=== PATIENT | female | born 1990 | race Caucasian/White ===

== ENCOUNTER 2020-10-16 01:20 | Emergency (ER) | payer SELFPAY ==
[~2020-10-16] VITALS: Ht 170.2 cm; Wt 102.3 kg
[2020-10-16] MEDS ORDERED: IBUPROFEN 200 MG TABLET. PO ONE (02:30)
[2020-10-16] MEDS ORDERED: ACETAMINOPHEN 500 MG TABLET PO ONE (02:30)
[2020-10-16] MEDS ORDERED: AMOX500C PO (03:04)
--- NOTE | 2020-10-16 03:06 | PHYS DOC ---
Past Medical History Additional Past Medical Histor: POLYCYSTIC OVARIAN SYNDROME Past Surgical History: No Surgical History Smoking Status: Current Every Day Smoker Alcohol Use: Rarely General Adult EDM: Chief Complaint: SORE THROAT HPI: HPI: Patient is a 30 year old female who presents with sore throat x3 days. States she has severe pain with swallowing. No fevers or chills. No sick contacts. No cough. Has never had similar symptoms before. Does have some swollen lymph nodes on the left side. No pain with moving the neck. She does have a sense of fullness in her left ear. Review of Systems: Review of Systems: Constitutional: Denies fever or chills. [] Eyes: Denies change in visual acuity. [] HENT: + Sore throat. denies nasal congestion [] Respiratory: Denies cough or shortness of breath. [] Cardiovascular: Denies chest pain or edema. [] GI: Denies abdominal pain, nausea, vomiting, bloody stools or diarrhea. [] : Denies dysuria. [] Musculoskeletal: Denies back pain or joint pain. [] Integument: Denies rash. [] Neurologic: Denies headache, focal weakness or sensory changes. [] Endocrine: Denies polyuria or polydipsia. [] Lymphatic: Denies swollen glands. [] Psychiatric: Denies depression or anxiety. [] Heart Score: C/O Chest Pain: N/A Risk Factors: Risk Factors: DM, Current or recent (<one month) smoker, HTN, HLP, family history of CAD, obesity. Risk Scores: Score 0 - 3: 2.5% MACE over next 6 weeks - Discharge Home Score 4 - 6: 20.3% MACE over next 6 weeks - Admit for Clinical Observation Score 7 - 10: 72.7% MACE over next 6 weeks - Early Invasive Strategies Family History: Family History: No pertinent family history Current Medications: Current Medications Medications (Trade) Dose Ordered Sig/Clarice Start Time Stop Time Status Last Admin Dose Admin Acetaminophen (Tylenol) 1,000 mg 1X ONCE 10/16/20 02:30 10/16/20 02:31 DC 10/16/20 02:26 1,000 MG Ibuprofen (Motrin) 600 mg 1X ONCE 10/16/20 02:30 10/16/20 02:31 DC 10/16/20 02:25 600 MG Allergies: Allergies: Allergies Coded Allergies Type Severity Reaction Last Updated Verified No Known Drug Allergies 10/16/20 No Physical Exam: PE: Constitutional: Well developed, well nourished, no acute distress, non-toxic appearance. [] HENT: Bilaterally swollen and erythematous tonsils. Mild exudates. Uvula is midline. No peritonsillar fullness. No pain with range of motion of the neck. Submental space is soft. No trismus. No stridor.. [] Eyes: PERRLA, EOMI, conjunctiva normal, no discharge. [] Neck: Normal range of motion, no tenderness, supple, no stridor. [] Cardiovascular:Heart rate regular rhythm, no murmur [] Lungs & Thorax: Bilateral breath sounds clear to auscultation [] Abdomen: Bowel sounds normal, soft, no tenderness, no masses, no pulsatile masses. [] Skin: Warm, dry, no erythema, no rash. [] Back: No tenderness, no CVA tenderness. [] Extremities: No tenderness, no cyanosis, no clubbing, ROM intact, no edema. [] Neurologic: Alert and oriented X 3, normal motor function, normal sensory function, no focal deficits noted. [] Psychologic: Affect normal, judgement normal, mood normal. [] Current Patient Data: Vital Signs: Vital Signs Date Time Temp Pulse Resp B/P (MAP) Pulse Ox O2 Delivery O2 Flow Rate FiO2 10/16/20 01:47 98.4 89 20 152/105 98 Room Air 98.4 EKG: EKG: [] Radiology/Procedures: Radiology/Procedures: [] Course & Med Decision Making: Course & Med Decision Making Pertinent Labs and Imaging studies reviewed. (See chart for details) Patient is a 30-year-old female who presents with 3 days of sore throat. Exam with evidence of tonsillitis. 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 Do not feel that she requires CT of the neck. Swab for strep and this results positive. Monospot and covid pending but seem much less likely with positive strep. We will not treat with steroids because she reports a remote history of a diabetes diagnosis and is not currently on medications. We will treat with amoxicillin. Treat pain with Tylenol, ibuprofen. Safe for discharge at this time. Delisa Disclaimer: Delisa Disclaimer: This electronic medical record was generated, in whole or in part, using a voice recognition dictation system. Departure Departure Impression: Primary Impression: Strep pharyngitis Disposition: HOME / SELF CARE / HOMELESS Condition: STABLE Patient Instructions: Strep Throat Additional Instructions: Please take full course of amoxicillin for strep throat. For pain tylenol and ibuprofen are best used on a schedule. Please alternate between the two. -Tylenol 1000 mg every 6 hours (do not exceed 4000 mg in one day) -Ibuprofen 400 mg every 6 hours. Take with food. Do not take for more than 1 week. Scripts Amoxicillin (AMOXICILLIN) 500 Mg Capsule 1 CAP PO BID for infection for 10 Days, #20 CAP Prov: THOMAS ORTEGA MD 10/16/20 THOMAS ORTEGA MD Oct 16, 2020 03:06
[2020-10-16 03:14] VITALS: BP 143/91
--- NOTE | 2020-10-17 13:18 | NUR ---
IP: Attempted to contact pt concerning covid results. No answer, left a voicemail to return the call.
--- NOTE | 2020-10-18 12:27 | NUR ---
IP: Attempted a second time to contact pt concerning covid results. No answer, left a voicemail to return the call.
== END 2020-10-16 03:20 | disposition home or self-care (01) ==
LOC: ER 01:20
DX: J02.0 Streptococcal pharyngitis (principal); B95.0 Streptococcus, group A, as the cause of diseases classified elsewhere; Z20.822 Contact with and (suspected) exposure to COVID-19; F17.200 Nicotine dependence, unspecified, uncomplicated
CPT/HCPCS: 87426; 87880; 99283; U0003

== ENCOUNTER 2021-01-25 22:02 | Emergency (ER) | payer SELFPAY ==
[~2021-01-25] VITALS: Ht 170.2 cm; Wt 99.1 kg
[~2021-01-25 22:02] MED LIST: AMOX500C PO
[2021-01-25] MEDS ORDERED: CYCLOBENZAPRINE 10 MG TABLET. PO ONE (22:30)
[2021-01-25] MEDS ORDERED: HYDROcodone/APAP 5/325MG 1 TAB TABLET PO ONE (22:30)
--- NOTE | 2021-01-25 22:56 | PHYS DOC ---
Past Medical History Additional Past Medical Histor: POLYCYSTIC OVARIAN SYNDROME Past Surgical History: No Surgical History Smoking Status: Current Every Day Smoker Alcohol Use: Rarely General Adult EDM: Chief Complaint: MECHANICAL FALL HPI: HPI: Patient is a 30 year old female who presents with was going down her front porch stairs when she slipped on the last 2 stairs with her lumbar back hitting the stair and when she tried to catch herself she now has pain with the left fourth finger and right lateral forearm. She denies hitting her head, neck pain, LOC, dizziness, headache, nausea, vomiting, chest pain, shortness of breath. She rates her pain a 9 out of 10 aching pain. Denies any current numbness or t ingling or focal weakness. Has a history of PCOS, lumbar back chronic pain, smoking. Review of Systems: Review of Systems: Constitutional: Denies fever or chills. [] Eyes: Denies change in visual acuity. [] HENT: Denies nasal congestion or sore throat. [] Respiratory: Denies cough or shortness of breath. [] Cardiovascular: Denies chest pain or edema. [] GI: Denies abdominal pain, nausea, vomiting, bloody stools or diarrhea. [] : Denies dysuria. [] Musculoskeletal: + back pain or joint pain. + Right forearm pain, + left fourth finger pain [] Integument: Denies rash. [] Neurologic: Denies headache, focal weakness or sensory changes. [] Endocrine: Denies polyuria or polydipsia. [] Lymphatic: Denies swollen glands. [] Psychiatric: Denies depression or anxiety. [] Heart Score: C/O Chest Pain: No Current Medications: Current Medications Medications (Trade) Dose Ordered Sig/Clarice Start Time Stop Time Status Last Admin Dose Admin Acetaminophen/ Hydrocodone Bitart (Lortab 5/325) 1 tab 1X ONCE 01/25/21 22:30 01/25/21 22:31 DC Cyclobenzaprine HCl (Flexeril) 10 mg 1X ONCE 01/25/21 22:30 01/25/21 22:31 DC Allergies: Allergies: Allergies Coded Allergies Type Severity Reaction Last Updated Verified No Known Drug Allergies 10/16/20 No Physical Exam: PE: Constitutional: Well developed, well nourished, no acute distress, non-toxic appearance. [] HENT: Normocephalic, atraumatic, bilateral external ears normal, oropharynx moist, no oral exudates, nose normal. [] Eyes: PERRLA, EOMI, conjunctiva normal, no discharge. [] Neck: Normal range of motion, no tenderness, supple, no stridor. [] Cardiovascular:Heart rate regular rhythm, no murmur [] Lungs & Thorax: Bilateral breath sounds clear to auscultation [] Abdomen: Bowel sounds normal, soft, no tenderness, no masses, no pulsatile masses. [] Skin: Warm, dry, no erythema, no rash. [] Back: Lumbar tenderness, no CVA tenderness. [] Extremities: Right forearm lateral, left fourth finger tenderness, no cyanosis, no clubbing, ROM intact, no edema. [] Neurologic: Alert and oriented X 3, normal motor function, normal sensory function, no focal deficits noted. [] Psychologic: Affect normal, judgement normal, mood normal. [] EKG: EKG: [] Radiology/Procedures: Radiology/Procedures: [] Impression: [facility] [address] [place], [place] [id number] IMAGING REPORT Signed PATIENT: TALIA BARRERA MACCOUNT: [id number] : 1990 LOCATION: ER AGE: 30 SEX: F EXAM STATUS: REG ER ORD. PHYSICIAN: SRUTHI MOSS APRN REASON: pain after fall, tender PROCEDURE: CT LUMBAR SPINE WO CONTRAST PQRS Compliance Statement: One or more of the following individualized dose reduction techniques were utilized for this examination: 1. Automated exposure control 2. Adjustment of the mA and/or kV according to patient size 3. Use of iterative reconstruction technique CT LUMBAR SPINE WO Clinical Indication: Reason: pain after fall, tender / Spl. Instructions: / History: Comparison: None. TECHNIQUE: Helical CT imaging of the lumbar spine is performed without IV contrast. Findings: There is no acute fracture of the lumbar spine. The vertebral body height and alignment are maintained. The disc spaces are maintained. No degenerative changes are identified. The central canal is patent. There is no significant spondylitic disc. The transverse processes are intact. The sacroiliac joints are symmetric. The neural foramina are widely patent. Limited visualization of the retroperitoneum is unremarkable. IMPRESSION: No acute fracture or malalignment of the lumbar spine. Electronically signed by: David Whitehead MD (01/26/2021 12:32 AM) [facility] DICTATED and SIGNED BY: DAVID WHITEHEAD MD DATE: 01/26/21 [id number] 0 Course & Med Decision Making: Course & Med Decision Making Pertinent Labs and Imaging studies reviewed. (See chart for details) See HPI. Alert and oriented x4. Speaks in full clear sentences. Skin pink warm and dry. Ambulatory with a steady gait. Focal bony spinal lumbar pain with palpation. No step-off or deformity felt. Range of motion the neck. No bruising, swelling, joint deformity, laceration, joint laxity to the patient's body. Tenderness to the whole left fourth finger. Patient has a hard time bending it due to pain. There is no joint laxity. Radial pulse strong and present bilaterally. Cap refill is less than 2 seconds bilaterally. Right lateral forearm tenderness but there is no bruising or swelling. No deformity. She can wiggle her fingers. No numbness or tingling. Dr. Martinez read x-rays as no obvious acute findings. Patient left fourth finger splint in AlumaFoam splint. CTs came back without any obvious acute findings. [] Delisa Disclaimer: Delisa Disclaimer: This electronic medical record was generated, in whole or in part, using a voice recognition dictation system. Departure Departure Impression: Primary Impression: Back pain Qualified Codes: M54.50 - Low back pain, unspecified Additional Impressions: Forearm contusion Qualified Codes: S50.11XA - Contusion of right forearm, initial encounter Finger contusion Qualified Codes: S60.042A - Contusion of left ring finger without damage to nail, initial encounter Fall Qualified Codes: W19.XXXA - Unspecified fall, initial encounter Disposition: HOME / SELF CARE / HOMELESS Condition: STABLE Referrals: NO PCP (PCP) DOUGLAS CARVAJAL DO Patient Instructions: Back Pain, Adult, Contusion, Fall Prevention and Home Safety Additional Instructions: Follow-up with primary care doctor or you can follow-up with orthopedic if you need to. Use ice and heating pad. Take medication as prescribed and with food. Rest. Scripts Cyclobenzaprine Hcl (CYCLOBENZAPRINE HCL) 5 Mg Tablet 1 TAB PO TID, #30 TAB Prov: SRUTHI MOSS APRN 01/26/21 Ibuprofen (IBUPROFEN) 600 Mg Tablet 600 MG PO PRN Q6HRS PRN for INFLAMMATION, #20 TAB Prov: SRUTHI MOSS APRN 01/26/21 SRUTHI MOSS APRN Jan 25, 2021 22:56
[2021-01-25 23:08] LABS: BILIRUBIN,URINE NEGATIVE (NEG); CLARITY,URINE CLEAR; COLOR,URINE YELLOW; NITRITE,URINE NEGATIVE (NEG); PH,URINE 5.5 (<5.0-8.0); PROTEIN,URINE NEGATIVE (NEG-TRACE)
[2021-01-25 23:14] LABS: BACTERIA,URINE FEW /HPF (0-FEW); HYALINE CASTS, URINE FEW /HPF; RBC,URINE 0 /HPF (0-2)
[2021-01-25 23:43] LABS: U PREG PATIENT NEGATIVE (NEG)
--- NOTE | 2021-01-26 00:35 | RAD ---
PQRS Compliance Statement: One or more of the following individualized dose reduction techniques were utilized for this examinat ion: 1. Automated exposure control 2. Adjustment of the mA and/or kV according to patient size 3. Use of iterative reconstruction technique CT LUMBAR SPINE WO Clinical Indication: Reason: pain after fall, tender / Spl. Instructions: / History: Comparison: None. TECHNIQUE: Helical CT imaging of the lumbar spine is performed without IV contrast. Findings: There is no acute fracture of the lumbar spine. The vertebral body height and alignment are maintaine d. The disc spaces are maintained. No degenerative changes are identified. The central canal is paten t. There is no significant spondylitic disc. The transverse processes are intact. The sacroiliac join ts are symmetric. The neural foramina are widely patent. Limited visualization of the retroperitoneum is unremarkable. IMPRESSION: No acute fracture or malalignment of the lumbar spine. Electronically signed by: David Whitehead MD (01/26/2021 12:32 AM) [facility]
[2021-01-26] MEDS ORDERED: CYCL5TAB PO (00:47)
[2021-01-26] MEDS ORDERED: IBUP-1007 PO (00:47)
--- NOTE | 2021-01-26 01:02 | RAD ---
XR HAND_LEFT 3 VIEWS, XR FOREARM_RIGHT 2 VIEWS Clinical Indication: Reason: 4th finger pain after fall / Spl. Instructions: / History: Comparison: None. Findings: There is no acute fracture of the hand. The joint spaces are maintained. The mineralization is normal . No soft tissue swelling is identified. No radiopaque foreign body. No bone erosion. There is no acute fracture of the radius or ulna. No obvious deformity of the elbow. There is no elbo w joint effusion. There is negative ulnar variance. There is mild dorsal soft tissue swelling of the mid forearm. No radiopaque foreign body seen. IMPRESSION: No acute fracture. Electronically signed by: David Whitehead MD (01/26/2021 1:00 AM) [facility]
[2021-01-26 01:23] VITALS: BP 108/69
== END 2021-01-26 01:30 | disposition home or self-care (01) ==
LOC: ER 22:02
DX: S50.11XA Contusion of right forearm, initial encounter (principal); S60.042A Contusion of left ring finger without damage to nail, initial encounter; M54.50 Low back pain, unspecified; G89.29 Other chronic pain; F17.200 Nicotine dependence, unspecified, uncomplicated; W10.8XXA Fall (on) (from) other stairs and steps, initial encounter; Y93.89 Activity, other specified; Y92.89 Other specified places as the place of occurrence of the external cause; Y99.8 Other external cause status
CPT/HCPCS: 29130; 72131; 73090; 73130; 81001; 81025; 87086; 99285-25

== ENCOUNTER 2021-02-25 15:37 | Emergency (ER) | payer SELFPAY ==
[~2021-02-25 15:37] MED LIST changes: +CYCL5TAB PO; +IBUP-1007 PO
[2021-02-26] MEDS ORDERED: IOHEXOL 300 MG/ML 100ML VIAL. ONE (00:16)
[2021-02-26] MEDS ORDERED: CAPS42.514 TP (00:44)
== END 2021-02-25 18:01 | disposition left against medical advice (07) ==
LOC: ER 15:37
DX: R11.2 Nausea with vomiting, unspecified (principal); R19.7 Diarrhea, unspecified; Z53.21 Procedure and treatment not carried out due to patient leaving prior to being seen by health care provider

== ENCOUNTER 2021-02-25 18:59 | Emergency (ER) | payer SELFPAY ==
[~2021-02-25] VITALS: Ht 167.6 cm; Wt 97.7 kg
[2021-02-25] MEDS ORDERED: IV NORMAL SALINE 1000ML BAG 1,000 ML IV SCH (20:30)
--- NOTE | 2021-02-25 20:45 | PHYS DOC ---
Past Medical History Additional Past Medical Histor: POLYCYSTIC OVARIAN SYNDROME Past Surgical History: Other Additional Past Surgical Histo: BACK SURGERY Smoking Status: Current Every Day Smoker Alcohol Use: Rarely General Adult EDM: Chief Complaint: ABDOMINAL PAIN HPI: HPI: Patient is a 31 year old female who presents with right-sided abdominal pain that is sharp and shooting wraps around to the right flank that started this morning. She states she is never felt pain like this before. She states she is having nausea and vomiting. She denies fever, urinary symptoms, blood in her urine, chest pain, shortness of air, diarrhea. History of PCOS and smoking. Rates her pain a 10 out of 10. Review of Systems: Review of Systems: Constitutional: Denies fever or chills. [] Eyes: Denies change in visual acuity. [] HENT: Denies nasal congestion or sore throat. [] Respiratory: Denies cough or shortness of breath. [] Cardiovascular: Denies chest pain or edema. [] GI: + abdominal pain, +nausea, +vomiting, bloody stools or diarrhea. [] : Denies dysuria. [] Musculoskeletal: + Right flank back pain or denies joint pain. [] Integument: Denies rash. [] Neurologic: Denies headache, focal weakness or sensory changes. [] Endocrine: Denies polyuria or polydipsia. [] Lymphatic: Denies swollen glands. [] Psychiatric: Denies depression or anxiety. [] Heart Score: C/O Chest Pain: No Current Medications: Current Medications Medications (Trade) Dose Ordered Sig/Clarice Start Time Stop Time Status Last Admin Dose Admin Famotidine (Pepcid Vial) 20 mg 1X ONCE 02/25/21 21:00 02/25/21 21:01 Fentanyl Citrate (Fentanyl 2ml Vial) 50 mcg 1X ONCE 02/25/21 21:15 02/25/21 21:16 Ondansetron HCl (Zofran) 4 mg 1X ONCE 02/25/21 21:00 02/25/21 21:01 Sodium Chloride 1,000 ml @ 1,000 mls/hr Q1H 02/25/21 20:30 02/25/21 21:29 Allergies: Allergies: Allergies Coded Allergies Type Severity Reaction Last Updated Verified No Known Drug Allergies 10/16/20 No Physical Exam: PE: Constitutional: Well developed, well nourished, no acute distress, non-toxic appearance. [] HENT: Normocephalic, atraumatic, bilateral external ears normal, oropharynx moist, no oral exudates, nose normal. [] Eyes: PERRLA, EOMI, conjunctiva normal, no discharge. [] Neck: Normal range of motion, no tenderness, supple, no stridor. [] Cardiovascular:Heart rate regular rhythm, no murmur [] Lungs & Thorax: Bilateral breath sounds clear to auscultation [] Abdomen: Bowel sounds normal, soft, right side tenderness, no masses, no pulsatile masses. [] Skin: Warm, dry, no erythema, no rash. [] Back: No tenderness, right CVA tenderness. [] Extremities: No tenderness, no cyanosis, no clubbing, ROM intact, no edema. [] Neurologic: Alert and oriented X 3, normal motor function, normal sensory function, no focal deficits noted. [] Psychologic: Affect normal, judgement normal, mood normal. [] Current Patient Data: Vital Signs: Vital Signs Date Time Temp Pulse Resp B/P (MAP) Pulse Ox O2 Delivery O2 Flow Rate FiO2 02/25/21 20:00 97.5 81 22 149/95 (113 100 Room Air 97.5 EKG: EK and read by Dr. Larkin is sinus rhythm and no STEMI Radiology/Procedures: Radiology/Procedures: [] Impression: [facility] [address] [place], [place] [id number] IMAGING REPORT Signed PATIENT: TALIA CHANDLER ACCOUNT: [id number] : 1990 LOCATION: ER AGE: 31 SEX: F EXAM STATUS: REG ER ORD. PHYSICIAN: SRUTHI MOSS W[employer] VESSEL CAPTAIN REASON: rIGHT SIDED ABDOMINAL PAIN WITH VOMITING, OMNI 300 75 ML IV PROCEDURE: CT ABD PELV W/ IV CONTRST ONLY CT ABDOMEN+PELVIS W History: rIGHT SIDED ABDOMINAL PAIN WITH VOMITING Comparison: None. Technique: After administration of intravenous contrast, helical CT of the abdomen and pelvis was performed from the lung bases through the ischial tuberosities. Coronal and sagittal reconstructions were obtained. 75 mL of Omnipaque 300 were used. One or more of the following dose reduction techniques were utilized: Automated exposure control (AEC), Adjustment of mA and/or kV according to patient size, Use of iterative reconstruction technique such as ASiR, CT scan done according to ALARA and image gently/image wisely Abdomen Findings: The visualized lung bases are clear. The liver, pancreas, spleen, and bilateral adrenal glands are normal. Cholelithiasis. Symmetric renal enhancement. There is no focal renal mass. There is no hydronephrosis. The visualized loops of small bowel are normal. The visualized loops of large bowel are normal. There is no evidence of bowel obstruction. Appendix is normal. There is no free fluid. There is no mesenteric or retroperitoneal adenopathy. The abdominal aorta is normal in caliber. Pelvis Findings: Urinary bladder is normal. Uterus is present. No pelvic free fluid. There is no pelvic or inguinal adenopathy. There is no acute bony abnormality. IMPRESSION: 1. No acute findings. 2. Cholelithiasis. Electronically signed by: Samira Bravo MD (02/25/2021 11:26 PM) [facility] DICTATED and SIGNED BY: SAMIRA BRAVO MD DATE: 02/25/21 [id number] 0 Course & Med Decision Making: Course & Med Decision Making Pertinent Labs and Imaging studies reviewed. (See chart for details) See HPI. Alert and oriented x4. Ambulatory with a steady gait. Speaks in full clear sentences. Right CVA tenderness. Right mid sided abdominal tenderness. Abdomen otherwise soft and nontender. Afebrile. CT abdomen pelvis shows cholelithiasis. Urinalysis is positive for cocaine and marijuana. Patient is still moaning and rocking back and forth complaining of abdominal pain and nausea. Patient is given 2 L of normal saline, a total of 50mcg of fentanyl and 4 mg of Zofran. Electrolytes are normal. Dr. Larkin states okay to give Haldol and Benadryl to treat for cyclic vomiting from marijuana use. After patient is given Haldol and Benadryl she is resting comfortably and in no longer in pain or vomiting. She will be p.o. challenged and then discharged home. 0048: Patient signed off to Dr Larkin [] Delisa Disclaimer: Delisa Disclaimer: This electronic medical record was generated, in whole or in part, using a voice recognition dictation system. Departure Departure Impression: Primary Impression: Nausea & vomiting Qualified Codes: R11.2 - Nausea with vomiting, unspecified Additional Impressions: Marijuana use Cocaine abuse Disposition: HOME / SELF CARE / HOMELESS Condition: STABLE Referrals: NO PCP (PCP) Patient Instructions: Cocaine Abuse and Chemical Dependency, Cyclic Vomiting Syndrome, Marijuana Abuse-Brief Additional Instructions: Follow-up with a primary care doctor or a gastrointestinal doctor soon as possible. Drink plenty of fluids. Slowly increase her diet. Stop smoking marijuana as this is likely what caused you to have pain and vomiting. Also you should stop using cocaine. If you get in vomiting and cannot keep down fluids or food or have increased pain or fever return emergency room. Scripts Capsaicin (CAPSAICIN) 42.5 Gm Cream..g. 1 RADHA TP BID, #42.5 GM 0 Refills Rub on abdomen when pain and vomiting starts. Prov: SRUTHI MOSS APRN 02/26/21 SRUTHI MOSS APRN Feb 25, 2021 20:45
[2021-02-25] MEDS ORDERED: ONDANSETRON PF 4 MG/2 ML VIAL. IVP ONE ×2 (21:00→23:00)
[2021-02-25] MEDS ORDERED: FAMOTIDINE 20 MG/2 ML VIAL IVP ONE (21:00)
[2021-02-25 21:03] LABS: BASO % 0 % (0-3); EOS % 0 % (0-3); HEMATOCRIT 49.5 % (36.0-47.0); HEMOGLOBIN 16.5 g/dL (12.0-15.5); LYMPH % 9 % (24-48); MEAN CORPUSCULAR HEMOGLOBIN 30 pg (25-35); MEAN CORPUSCULAR HGB CONC 33 g/dL (31-37); MEAN CORPUSCULAR VOLUME 89 fL (79-100); MONO # 0.2 x10^3/uL (0.0-1.1); MONO % 2 % (0-9); NEUT # 9.2 x10^3/uL (1.8-7.7); NEUT % 89 % (31-73); PLATELET COUNT 215 x10^3/uL (140-400); RED BLOOD COUNT 5.54 x10^6/uL (3.50-5.40); RED CELL DISTRIBUTION WIDTH 13.1 % (11.5-14.5); WHITE BLOOD COUNT 10.3 x10^3/uL (4.0-11.0)
[2021-02-25] MEDS ORDERED: fentaNYL PF VIAL 100 MCG/2 ML VIAL IVP ONE ×2 (21:15→22:45)
[2021-02-25 21:17] LABS: CALCIUM 8.8 mg/dL (8.5-10.1); CREATININE 0.6 mg/dL (0.6-1.0); GFR 116.6; POTASSIUM 4.9 mmol/L (3.5-5.1)
[2021-02-25 21:23] LABS: ALBUMIN 3.5 g/dL (3.4-5.0); ALBUMIN/GLOBULIN RATIO 0.8 (1.0-1.7); TOTAL BILIRUBIN 0.3 mg/dL (0.2-1.0); TOTAL PROTEIN 7.9 g/dL (6.4-8.2)
[2021-02-25 22:41] LABS: BILIRUBIN,URINE NEGATIVE (NEG); CLARITY,URINE CLEAR; COLOR,URINE YELLOW; NITRITE,URINE NEGATIVE (NEG); PH,URINE 8.5 (<5.0-8.0); PROTEIN,URINE NEGATIVE (NEG-TRACE)
[2021-02-25 22:48] LABS: AMPHETAMINE/METHAMPHETAMINE NEG (NEG); BARBITURATES NEG (NEG); BENZODIAZEPINES NEG (NEG); CANNABINOIDS POS (NEG); COCAINE POS (NEG); METHADONE NEG (NEG); OPIATES NEG (NEG); PHENCYCLIDINE NEG (NEG)
[2021-02-25 22:55] LABS: BACTERIA,URINE 0 /HPF (0-FEW); RBC,URINE 0 /HPF (0-2); WBC,URINE OCC /HPF (0-4)
[2021-02-25] MEDS ORDERED: IOHEXOL 300 MG/ML 100ML VIAL. IV ONE (23:00)
[2021-02-25] MEDS ORDERED: CONTRAST GIVEN. MC PRN (23:00)
[2021-02-25] MEDS ORDERED: IV NORMAL SALINE 1000ML BAG 1,000 ML IV ONE (23:15)
--- NOTE | 2021-02-25 23:28 | RAD ---
CT ABDOMEN+PELVIS W History: rIGHT SIDED ABDOMINAL PAIN WITH VOMITING Comparison: None. Technique: After administration of intravenous contrast, helical CT of the abdomen and pelvis was per formed from the lung bases through the ischial tuberosities. Coronal and sagittal reconstructions wer e obtained. 75 mL of Omnipaque 300 were used. One or more of the following dose reduction techniques were utilized: Automated exposure control (AEC), Adjustment of mA and/or kV according to patient size , Use of iterative reconstruction technique such as ASiR, CT scan done according to ALARA and image g ently/image wisely Abdomen Findings: The visualized lung bases are clear. The liver, pancreas, spleen, and bilateral adrenal glands are normal. Cholelithiasis. Symmetric renal enhancement. There is no focal renal mass. There is no hydronephrosis. The visualized loops of small bowel are normal. The visualized loops of large bowel are normal. There is no evidence of bowel obstruction. Appendix is normal. There is no free fluid. There is no mesenteric or retroperitoneal adenopathy. The abdominal aorta is normal in caliber. Pelvis Findings: Urinary bladder is normal. Uterus is present. No pelvic free fluid. There is no pelvic or inguinal ad enopathy. There is no acute bony abnormality. IMPRESSION: 1. No acute findings. 2. Cholelithiasis. Electronically signed by: Adi Bravo MD (02/25/2021 11:26 PM) [facility]
[2021-02-25] MEDS ORDERED: diphenhydrAMINE 50 MG/ML VIAL IVP ONE (23:45)
[2021-02-25] MEDS ORDERED: HALOPERIDOL LACTATE 5 MG/ML VIAL. IVP ONE (23:45)
[2021-02-26] MEDS ORDERED: CAPS42.514 TP (00:44)
[2021-02-26 01:09] VITALS: BP 148/82
--- NOTE | 2021-02-26 06:48 | EKG ---
[facility] [address] [place] [id number] Test Date: 2021-02-26 Test Time: 00:07:34 Pat Name: TALIA CHANDLER Department: Room: Gender: F Senior Qa Engineer: : 1990 Requested By: SRUTHI MSOS Order Number: [id number] Reading MD: Measurements Intervals [place] Rate: 73 P: 29 GA: 178 QRS: 16 QRSD: 90 T: 20 QT: 414 QTc: 460 Interpretive Statements SINUS RHYTHM NORMAL ECG RI6.02 Compared to ECG 02/25/2021 23:57:55 Right superior axis no longer present Myocardial infarct finding no longer present
--- NOTE | 2021-02-27 10:35 | NUR ---
IP: Attempted to contact pt concerning covid results. No answer, left a voicemail to return the call.
--- NOTE | 2021-02-28 16:19 | NUR ---
IP: Attempted a second time to contact pt concerning covid results. Again, no answer, left a voicemail to return the call.
== END 2021-02-26 01:25 | disposition home or self-care (01) ==
LOC: ER 18:59
DX: R11.2 Nausea with vomiting, unspecified (principal); F14.10 Cocaine abuse, uncomplicated; F12.90 Cannabis use, unspecified, uncomplicated; Z20.822 Contact with and (suspected) exposure to COVID-19
CPT/HCPCS: 36415; 74177; 80053; 80307; 81001; 81025; 83690; 83735; 84484; 84702; 85025; 87426; 93005; 96361; 96374; 96375; 99285; J1200; J1630; J2405; J3010; J3490; J7030; Q9967; U0003; U0005